=== PATIENT | male | born 2000 | race Caucasian/White ===

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

== ENCOUNTER → 2018-02-26 | Outpatient (CLI) | payer BC ==
[~2018-02-26] VITALS: Ht 172.7 cm; Wt 75.0 kg
[2018-02-26 17:37] VITALS: BP 132/65
[2018-02-26 17:49] LABS: BUN/CREATININE RATIO 16.8 (6.0-26.0); CALCIUM 9.5 mg/dL (8.4-10.2); POTASSIUM 4.2 mmol/L (3.6-5.0)
[2018-02-26 18:19] VITALS: BP 134/74
[2018-02-26 18:41] VITALS: BP 134/74
== END ==
LOC: AMSURD 16:51
PROVIDERS: Physician Assistant
DX: R42 Dizziness and giddiness (principal)
CPT/HCPCS: J7030

== ENCOUNTER → 2018-04-16 | Outpatient (CLI) | payer BC ==
[~2018-04-16] VITALS: Ht 172.7 cm; Wt 75.0 kg
[2018-04-16 12:05] VITALS: BP 118/73
[2018-04-16 13:18] VITALS: BP 109/62
[2018-04-16 13:20] VITALS: BP 122/64
[2018-04-16 13:21] VITALS: BP 114/66
--- NOTE | 2018-04-16 13:25 | NUR ---
Notified CASEY Deras, of orthostatic BP and that pt denies feeling dizzy or lightheaded with position changes. Provider instructs to d/c pt upon completion of ordered fluids.
== END ==
LOC: AMSURD 11:51
DX: R42 Dizziness and giddiness (principal)
CPT/HCPCS: J7030

== ENCOUNTER → 2019-08-12 | Outpatient (CLI) | payer BC ==
[2018-04-16 13:21] VITALS: BP 114/66
[2019-08-12 10:59] LABS: HEMATOCRIT 42.9 % (42.0-52.0); HEMOGLOBIN 13.8 g/dL (13.5-18.0); MEAN PLATELET VOLUME 9.4 fl (7.4-10.4); RED BLOOD COUNT 4.72 M/mm3 (4.20-5.60); RED CELL DISTRIBUTION WIDTH 13.4 % (11.5-14.5); WHITE BLOOD COUNT 7.9 K/mm3 (4.8-10.8)
[2019-08-12 11:12] LABS: ALBUMIN 4.3 g/dL (3.5-5.0); POTASSIUM 4.4 mmol/L (3.5-5.1)
[2019-08-12 11:14] LABS: CALCIUM 9.7 mg/dL (8.3-10.5)
[2019-08-12 11:15] LABS: TOTAL PROTEIN 7.1 g/dL (6.4-8.3)
[2019-08-12 11:17] LABS: TOTAL BILIRUBIN 0.3 mg/dL (0.2-1.2)
== END ==
LOC: LAB 10:39
PROVIDERS: Family Medicine
DX: R41.0 Disorientation, unspecified (principal); R42 Dizziness and giddiness; Z72.0 Tobacco use

== ENCOUNTER → 2019-08-19 | Outpatient (CLI) | payer BC ==
[2018-04-16 13:21] VITALS: BP 114/66
== END ==
LOC: RAD 07:45
DX: R41.0 Disorientation, unspecified (principal); R42 Dizziness and giddiness; Z72.0 Tobacco use
CPT/HCPCS: A9585